=== PATIENT | male | born 1960 | race Caucasian/White ===

== ENCOUNTER 2020-01-17 13:07 | Emergency (ER) | payer OTHER ==
[2020-01-17] MEDS ORDERED: Lidocaine 2% PF * 5 ML VIAL IV ONE (13:16)
[2020-01-17 13:36] VITALS: BP 161/81
--- NOTE | 2020-01-17 14:07 | UC ---
Laceration HPI - HPI Summary HPI Summary: laceration corner of right eye x 1 hr ago hit by the tip the hose to his right eye , laceration just under the right eyebrow , lots of bleeding no eye pain , no vision changes - History Of Current Complaint Chief Complaint: UCLaceration Stated Complaint: WC RIGHT EYE INJURY Time Seen by Provider: 01/17/20 13:16 Hx Obtained From: Patient Laceration Location: Face Mechanism Of Injury: Blunt Trauma Onset/Duration: Sudden Onset, Lasting Hours - 1, Still Present Severity: Moderate Pain Intensity: 10 Aggravating Factors: Nothing Head: 1 - 2 cm laceration - Allergies/Home Medications Allergies/Adverse Reactions: Allergies Allergy/AdvReac Type Severity Reaction Status Date / Time No Known Allergies Allergy Verified 01/17/20 13:37 Home Medications: Home Medications Albuterol HFA INHALER* [Ventolin HFA Inhaler*] 1 - 2 puff INH Q4H PRN 01/17/20 [ History Confirmed 01/17/20] Vitamin THERAPEUTIC TAB* [Theragran TAB*] 1 tab PO DAILY 01/17/20 [History Confirmed 01/17/20] PMH/Surg Hx/FS Hx/Imm Hx Respiratory History: COPD, Asthma Other History Of: Negative For: HIV, Hepatitis B, Hepatitis C, Anticoagulant Therapy - Surgical History Surgical History: Yes Surgery Procedure, Year, and Place: TONSILLECTOMY, RIGHT BREAST TUMOR REMOVAL, APPENDECTOMY, KNEE SURGERY - Family History Known Family History: Positive: Cardiac Disease - mother, Hypertension Family History: NON CONTRIBUTORY - Social History Alcohol Use: None Alcohol Amount: none since 2011 Substance Use Type: Marijuana Substance Use Comment - Amount & Last Used: "once in a while" Smoking Status (MU): Heavy Every Day Tobacco Smoker Type: Cigarettes Amount Used/How Often: 1/2 ppd Length of Time of Smoking/Using Tobacco: 30 years Have You Smoked in the Last Year: Yes When Did the Patient Quit Smoking/Using Tobacco: down from 2 ppd - Immunization History Most Recent Influenza Vaccination: never Most Recent Tetanus Shot: November Most Recent Pneumonia Vaccination: never Review of Systems All Other Systems Reviewed And Are Negative: Yes Constitutional: Positive: Negative Eyes: Positive: Negative ENT: Positive: Negative Is Patient Immunocompromised?: No Physical Exam Triage Information Reviewed: Yes Appearance: Well-Appearing, No Pain Distress, Well-Nourished Vital Signs: Initial Vital Signs Temp 98.4 F 01/17/20 13:08 Pulse 71 01/17/20 13:08 Resp 20 01/17/20 13:08 BP 161/81 01/17/20 13:08 Pulse Ox 96 01/17/20 13:08 Vital Signs Reviewed: Yes Eye Exam: Normal Eyes: Positive: Conjunctiva Clear, Other: - PERRLA, EOMI ENT: Positive: Normal ENT inspection, Hearing grossly normal, Pharynx normal Neck: Positive: Supple, Nontender, No Lymphadenopathy Respiratory Exam: Normal Respiratory: Positive: Chest non-tender, Lungs clear, Normal breath sounds Cardiovascular: Positive: RRR, No Murmur, Pulses Normal Skin: Positive: Other - 2 cm laceration right upper eyelid + bleeding , bleeding was controlled by pressure Laceration Repair - Laceration Repair 1 Description: Linear Laceration Size After Repair: Length (cm) - 2, Width (mm) - 3, Depth (mm) - 3 Modified For Repair: No Anesthesia Used: 2.0% Lido - 3cc Cleansing Completed Via Routine Prep: Yes Irrigation With Pressure Irrigation Device: Yes Suture Of: Skin Suture Type: Nylon - 5.0 x 6 Laceration Course/Dx - Diagnosis Provider Diagnosis: Ulcer of right upper eyelid Discharge ED - Sign-Out/Discharge Documenting (check all that apply): Patient Departure All imaging exams completed and their final reports reviewed: No Studies - Discharge Plan Condition: Stable Disposition: HOME Patient Education Materials: Facial Laceration (ED) Referrals: Ben Figueredo MD [Primary Care Provider] - 5 Days Additional Instructions: follow up in 5 to 7 days for suture removal - Billing Disposition and Condition Condition: STABLE Disposition: Home
== END 2020-01-17 14:04 | disposition home or self-care (01) ==
LOC: UCCORT 13:07
DX: H01.8 Other specified inflammations of eyelid (principal); J44.9 Chronic obstructive pulmonary disease, unspecified; F17.210 Nicotine dependence, cigarettes, uncomplicated
CPT/HCPCS: 12011; 99211; G0463

== ENCOUNTER 2020-01-23 08:28 | Emergency (ER) | payer OTHER ==
[2020-01-23 08:58] VITALS: BP 135/68
--- NOTE | 2020-01-23 09:30 | UC ---
HPI Wound/Suture Re-check - HPI Summary HPI Summary: here for suture removal sutures were placed 7 days ago right upper eyelid , the wound is healing well, no swelling, no redness, no bleeding, no discharge no eye pain , no change in vision - History Of Current Complaint Chief Complaint: UCGeneralIllness Stated Complaint: STUTURE REMOVAL (PT GOT THEM DONE HERE) Time Seen by Provider: 01/23/20 09:17 Hx Obtained From: Patient Onset/Duration: Sudden Onset, Lasting Days - 7, Still Present Severity: Moderate Pain Intensity: 0 Procedure Type: suture removal Surgery Date: 01/17/20 - Allergies/Home Medications Allergies/Adverse Reactions: Allergies Allergy/AdvReac Type Severity Reaction Status Date / Time No Known Allergies Allergy Verified 01/23/20 08:58 Home Medications: Home Medications Albuterol HFA INHALER* [Ventolin HFA Inhaler*] 1 - 2 puff INH Q4H PRN 01/17/20 [ History Confirmed 01/23/20] Vitamin THERAPEUTIC TAB* [Theragran TAB*] 1 tab PO DAILY 01/17/20 [History Confirmed 01/23/20] PMH/Surg Hx/FS Hx/Imm Hx Respiratory History: COPD, Asthma GI/ History: Gastroesophageal Reflux Other History Of: Negative For: HIV, Hepatitis B, Hepatitis C, Anticoagulant Therapy - Surgical History Surgical History: Yes Surgery Procedure, Year, and Place: TONSILLECTOMY, RIGHT BREAST TUMOR REMOVAL, APPENDECTOMY, KNEE SURGERY - Family History Known Family History: Positive: Cardiac Disease - mother, Hypertension Family History: NON CONTRIBUTORY - Social History Alcohol Use: None Alcohol Amount: none since 2011 Substance Use Type: Marijuana Substance Use Comment - Amount & Last Used: "once in a while" Smoking Status (MU): Heavy Every Day Tobacco Smoker Type: Cigarettes Amount Used/How Often: 1/2 ppd Length of Time of Smoking/Using Tobacco: 30 years Have You Smoked in the Last Year: Yes When Did the Patient Quit Smoking/Using Tobacco: down from 2 ppd - Immunization History Most Recent Influenza Vaccination: never Most Recent Tetanus Shot: November Most Recent Pneumonia Vaccination: never Review of Systems All Other Systems Reviewed And Are Negative: Yes Is Patient Immunocompromised?: No Physical Exam Triage Information Reviewed: Yes Appearance: Well-Appearing, No Pain Distress, Well-Nourished Vital Signs: Initial Vital Signs Temp 97.6 F 01/23/20 08:55 Pulse 72 01/23/20 08:55 Resp 14 01/23/20 08:55 BP 135/68 01/23/20 08:55 Pulse Ox 98 01/23/20 08:55 Vital Signs Reviewed: Yes Eye Exam: Normal Eyes: Positive: Conjunctiva Clear ENT: Positive: Normal ENT inspection, Hearing grossly normal, Pharynx normal Neck: Positive: Supple, Nontender, No Lymphadenopathy Respiratory: Positive: Chest non-tender, Lungs clear, Normal breath sounds Cardiovascular: Positive: RRR, No Murmur, Pulses Normal Skin: Positive: Other - laceration right upper eyelid, healing well, 6 suture intace, no swelling, no discharge, no tenderness, sutures with removed Course/Dx - Diagnosis Provider Diagnosis: Encounter for removal of sutures, Laceration, eyelid, right Discharge ED - Sign-Out/Discharge Documenting (check all that apply): Patient Departure All imaging exams completed and their final reports reviewed: No Studies - Discharge Plan Condition: Stable Disposition: HOME Patient Education Materials: Stitches Removal (ED) Referrals: Ben Figueredo MD [Primary Care Provider] - If Needed - Billing Disposition and Condition Condition: STABLE Disposition: Home
== END 2020-01-23 09:32 | disposition home or self-care (01) ==
LOC: UCCORT 08:28
DX: S01.111D Laceration without foreign body of right eyelid and periocular area, subsequent encounter (principal); J44.9 Chronic obstructive pulmonary disease, unspecified; F17.210 Nicotine dependence, cigarettes, uncomplicated; X58.XXXD Exposure to other specified factors, subsequent encounter